=== PATIENT | female | born 2005 | race Caucasian/White ===

== ENCOUNTER 2024-11-08 12:26 | Emergency (ER) | payer BC, SELFPAY ==
[2024-11-08 12:29] VITALS: BP 120/86; PULSE 79; TEMP 36.8; O2SAT 100; BMI 23.3
--- NOTE | 2024-11-08 12:40 | ED_ITS ---
Documented by User: Karla Youssef NP 11/08/24 13:38 HPI HPI - General Adult General Chief complaint: Allergic Reaction Stated complaint: ALLERGIC REACTION Time Seen by Provider: 11/08/24 12:31 Source: patient Mode of arrival: walk-in History of Present Illness HPI narrative: Patient is a 19-year-old female who presents to the emergency department today for evaluation concerns for an allergic reaction. She endorses she [place] and there was a smell of peanuts around her which she states she is allergic to and carries an EpiPen for her. She reports she st arted having some tearing to her eyes and swelling to her face. She mentioned she did break down some hives on her left arm and left side of torso. She reports she did take 50 mg of Benadryl about 30 minutes prior to arrival in the ER. She does endorse some pain with swallowing. No wheezing or shortness of breath. She does report some nausea without vomiting. She has any diarrhea. She mention she did not use her EpiPen. Related Data Previous Rx's ?Medication ?Instructions ?Recorded prednisone 20 mg tablet 20 mg PO DAILY 3 days #3 tab s 11/08/24 Allergies Allergy/AdvReac Type Severity Reaction Status Date / Time peanut Allergy Severe Anaphylaxis Verified 11/08/24 12:37 tree nuts Allergy Severe Anaphylaxis Uncoded 11/08/24 12:37 Review of Systems ROS Status of ROS 10 or more systems reviewed and unremark able except as noted in history and below PFSH PFSH Social History Little interest or pleasure in doing things: not at all Feeling down, depressed, or hopeless: not at all Exam Narrative Exam Narrative: Constituational: Awake/ alert, no apparent distress, well hydrated HENMT: normocephalic, internal/external ears normal, no oral/angioedema, no trismus, no stridor, moist oral mucous membranes and oropharynx normal Eyes:+ Tearing to both eyes, PERRL/EOMI and conjunctivae normal Neck: ROM intact Chest: inspection of chest normal Respiratory: Normal respiratory effort, clear to auscultation bilaterally Cardio: regular rate and regular rhythm GI: soft to palpation and non-tender Back: nontender MSK: ROM intact, +NVI Skin: + x 2 to home anterior aspect of distal L forearm and mid lateral torso Neuro: no focal deficits Psych: mental status grossly normal Constitutional Vital Signs, click to edit/add: Last Vital Signs Temp 98.3 F 11/08/24 12:29 Pulse 75 11/08/24 13:51 Resp 16 11/08/24 13:51 BP 125/80 11/08/24 13:51 Pulse Ox 100 11/08/24 13:51 O2 Del Method Room Air 11/08/24 12:29 Course Vital Signs Vital signs: Vital Signs Temperature 98.3 F 11/08/24 12:29 Pulse Rate 79 11/08/24 12:29 Respiratory Rate 20 11/08/24 12:29 Blood Pressure 120/86 11/08/24 12:29 Pulse Oximetry 100 11/08/24 12:29 Oxygen Delivery Method Room Air 11/08/24 12:29 Temperature 98.3 F 11/08/24 12:29 Pulse Rate 75 11/08/24 13:51 Respiratory Rate 16 11/08/24 13:51 Blood Pressure 125/80 11/08/24 13:51 Pulse Oximetry 100 11/08/24 13:51 Oxygen Delivery Method Room Air 11/08/24 12:29 Medical Decision Making MDM Narrative Medical decision making narrative: The patient is a well-appearing 19-year-old female who presented to the emergency department today for evaluation concerns for allergic reaction 2/2 exposure to peanuts. Initial examination vital signs overall stable. No clinical evidence concerning for angioedema or anaphylaxis. There is mild clinical evidence of allergic reaction as evidenced by hives x 2 to the arm and torso and reported discomfort in the throat and symptoms of nausea. Histor ically patient did take Benadryl prior to arrival in the ER patient did receive additional supportive measures of IVP Solu-Medrol and Pepcid with IV fluids. On reevaluation patient is reporting overall improvement in condition. Vital signs have remained stable. She is tolerating oral intake with no subsequent nausea or vomiting. Clinical impression allergic reaction, mild/moderate. Discussed these findings with the patient including recommendations for supportive care. Short course of prednisone therapy. Advised and continuation of Benadryl as needed. Additional advised on follow-up with patient's primary care provider for reevaluation. Discussed signs and symptoms of any worsening condition and when to return to the emergency department for evaluation. Patient verbalized an understanding of this and is agreeable with the plan to be discharged home Medical Records Medical records reviewed: Yes I reviewed the patient's medical records Discharge Plan Discharge Chief Complaint: Allergic Reaction Clinical Impression: Allergic reaction Patient Disposition: Home, Self-Care Mode of Transportation: Private Vehicle Prescriptions / Home Meds: New prednisone 20 mg tablet 20 mg PO DAILY 3 Days Qty: 3 0RF Print Language: Citizen Of [place] Instructions: General Allergic Reaction (ED) Additional Instructions: Start taking prednisone tomorrow as prescribed. May continue to use Benadryl as needed. Stay hydrated and drink plenty of fluids. Follow-up with your primary care provider for reevaluation as discussed. Discharge Date/Time: 11/08/24 13:53 Documented by User: Prashanth Gifford MD 11/08/24 20:02 HPI HPI - General Adult General Chief complaint: Allergic Reaction Stated complaint: ALLERGIC REACTION Time Seen by Provider: 11/08/24 12:31 Related Data Previous Rx's ?Medication ?Instructions ?Recorded prednisone 20 mg tablet 20 mg PO DAILY 3 days #3 tab s 11/08/24 Allergies Allergy/AdvReac Type Severity Reaction Status Date / Time peanut Allergy Severe Anaphylaxis Verified 11/08/24 12:37 tree nuts Allergy Severe Anaphylaxis Uncoded 11/08/24 12:37 PFSH PFSH Social History Little interest or pleasure in doing things: not at all Feeling down, depressed, or hopeless: not at all Exam Constitutional Vital Signs, click to edit/add: Last Vital Signs Temp 98.3 F 11/08/24 12:29 Pulse 75 11/08/24 13:51 Resp 16 11/08/24 13:51 BP 125/80 11/08/24 13:51 Pulse Ox 100 11/08/24 13:51 O2 Del Method Room Air 11/08/24 12:29 Course Vital Signs Vital signs: Vital Signs Temperature 98.3 F 11/08/24 12:29 Pulse Rate 79 11/08/24 12:29 Respiratory Rate 20 11/08/24 12:29 Blood Pressure 120/86 11/08/24 12:29 Pulse Oximetry 100 11/08/24 12:29 Oxygen Delivery Method Room Air 11/08/24 12:29 Temperature 98.3 F 11/08/24 12:29 Pulse Rate 75 11/08/24 13:51 Respiratory Rate 16 11/08/24 13:51 Blood Pressure 125/80 11/08/24 13:51 Pulse Oximetry 100 11/08/24 13:51 Oxygen Delivery Method Room Air 11/08/24 12:29 Medical Decision Making MDM Narrative Medical decision making narrative: The patient is a well-appearing 19-year-old female who presented to the emergency department today for evaluation concerns for allergic reaction 2/2 exposure to peanuts. Initial examination vital signs overall stable. No clinical evidence concerning for angioedema or anaphylaxis. There is mild clinical evidence of allergic reaction as evidenced by hives x 2 to the arm and torso and reported discomfort in the throat and symptoms of nausea. Historically patient did take Benadryl prior to arrival in the ER patient did receive additional supportive measures of IVP Solu-Medrol and Pepcid with IV fluids. On reevaluation patient is reporting overall improvement in condition. Vital signs have remained stable. She is tolerating oral intake with no subsequent nausea or vomiting. Clinical impression allergic reaction, mild/moderate. Discussed these findings with the patient including recommendations for supportive care. Short course of prednisone therapy. Advised and continuation of Benadryl as needed. Additional advised on follow-up with patient's primary care provider for reevaluation. Discussed signs and symptoms of any worsening condition and when to return to the emergency department for evaluation. Patient verbalized an understanding of this and is agreeable with the plan to be discharged home. Pain I, Dr Gifford, have reviewed the above progress note and course of action in the ER; agree with the above. I have personally gone over history and physical, and discussed disposition and treatment plan with the PA. Discharge Plan Discharge Chief Complaint: Allergic Reaction Clinical Impression: Allergic reaction Patient Disposition: Home, Self-Care Mode of Transportation: Private Vehicle Prescriptions / Home Meds: New prednisone 20 mg tablet 20 mg PO DAILY 3 Days Qty: 3 0RF Print Language: Citizen Of [place] Instructions: General Allergic Reaction (ED) Additional Instructions: Start taking prednisone tomorrow as prescribed. May continue to use Benadryl as needed. Stay hydrated and drink plenty of fluids. Follow-up with your primary care provider for reevaluation as discussed. Discharge Date/Time: 11/08/24 13:53
[2024-11-08] MEDS: 0.9 % SODIUM CHLORIDE 1,000 ML 1000 ML IV (12:49)
[2024-11-08] MEDS: FAMOTIDINE/PF 20 MG/2 ML VIAL IV (12:49)
[2024-11-08] MEDS: METHYLPREDNISOLONE SOD SUCC PF 125 MG/2 ML VIAL IVP (12:49)
--- OUTSIDE RECORDS SUMMARY | 2024-11-08 13:05 | XMS_ITS | Referral Summary ---
Author Organization [facility] alth Address [address] [place] [address] Care Team Providers Care Supervising Chef Name Role Phone Elysia Abdalla NP Primary Care Provider [phone] Encounters Date Type Department Care Team Description 08/19/2024 11:00 AM EDT Office Visit [facility] Medicine [address] [facility] [place] [address] Elysia Abdalla NP Wheezing (Primary Dx); Acute cough; Nasal congestion from Last 3 Months Allergies Active Allergy Reactions Criticality Noted Date Comments Grass Pollen-Perennial Hull, Standard 06/18/2017 Tree Nuts High 06/18/2017 Medications EPINEPHrine (EPIPEN) 0.3 mg/0.3 mL injection syringe Inject 0.3 mL (0.3 mg total) into a muscle as directed if needed for anaphylaxis (INJECT INTO THE THIGH FOR ANAPHLAXIS REACTION and CALL 911). Call 911 after use. 1 each 10/09/19 24 Active escitalopram (LEXAPRO) 10 mg tablet TAKE 1 TABLET(10 MG) BY MOUTH 1 TIME EACH DAY 30 tablet 3 07/26/19 25 Active SUMAtriptan (IMITREX) 50 mg tabletIndicat ions:Frequent headaches Take 1 tablet (50 mg total) by mouth 1 (one) time if needed for migraine (may repeat once after 2 hours). May repeat dose once in 2 hours if no relief. Do not exceed 2 doses in 24 hours. 9 tablet 1 08/06/19 25 026 Active albuterol HFA (VENTOLIN HFA) 90 mcg/actuation inhaler 08/19/19 25 Active albuterol 2.5 mg /3 mL (0.083 %) nebulizer solutionIndic ations:Wheezi ng,Acute cough Take 3 mL (2.5 mg total) by nebulization 4 (four) times a day if needed for wheezing or shortness of breath for up to 125 doses. 75 mL 08/20/19 25 026 Active norgestimate- ethinyl estradioL (Estarylla) 0.25-0.035 mg per tablet TAKE 1 TABLET BY MOUTH IN THE MORNING 84 tablet 1 11/08/19 25 Active Estarylla 0.25-35 mg-mcg per tablet take 1 tablet by mouth every day 28 tablet 12 11/17/19 24 025 Discontinued(R eorder) norgestimate- ethinyl estradioL (Estarylla) 0.25-0.035 mg per tablet Take 1 tablet by mouth in the morning. 28 tablet 12 11/02/19 25 025 Discontinued Active Problems Problem Noted Date Diagnosed Date Environmental allergies 12/21/2021 Anxiety 12/21/2021 Immunizations Immunization Administration Dates Next Due COVID-19 Vacc,mRNA ([employer]) SARS-CoV-2 Vaccine 06/08/2021,10/16/2020,09/25/2020 DTaP 06/28/2005, 5,2004,03/09 DTaP / IPV 01/12/2010 H1N1 Nasal 03/12/2009 HPV9 12/31/2018,01/09/2018 Hep A, 2 Dose 01/06/2015,02/25/2014 Hep B, Adolescent or Pediatric 2004,2003,2004 Hib (PRP-T) 06/28/2005, 5,2004,03/09 IPV 2004,2004,2004 Influenza, Injectable, Quadr ivalent, Preservative Free 02/10/2018 Influenza, Quadrivalent 02/25/2014 Influenza, injectable, quadr ivalent, preservative free 02/10/2018 MMR 10/07/2005 MMRV (ProQuad) 02/25/2014 Meningococcal B, Omv 10/18/2021 Meningococcal MCV4P 02/25/2014 Pneumococcal Conjugate 01/06/2005,2004,2004,03/09 Tdap 02/25/2014 Typhoid 01/09/2018 Varicella 01/06/2005 meningococcal polysaccharide A,C,Y,W-135 TT Conjugate (MCV4)(MenQuadfi) 11/06/2020 Social History Tobacco Use Types Packs/Day Years Used Date Smoking Tobacco: Never Smokeless Tobacco: Never Alcohol Use Standard Drinks/Week Comments No 0 (1 standard drink = 0.6 oz pur e alcohol) PHQ-2 Answer Date Recorded Patient Health Questionnaire-2 Score 2 12/21/2021 Comments Unknown Sex and Gender Information Value Date Recorded Sex Assigned at Female 08/05/2024 9:31 PM EST Legal Sex Female 11:49 PM EDT Gender Identity Female 08/05/2024 9:31 PM EST Sexual Orientation Not on file Last Filed Vital Signs Vital Sign Reading Time Taken Comments Blood Pressure 100/70 08/19/2024 11:03 AM EDT Pulse 94 08/19/2024 11:03 AM EDT Temperature 36.9 C (98.4 F) 11/04/2022 12:55 PM EDT Respiratory Rate - - Oxygen Saturation 99% 08/19/2024 11:03 AM EDT Inhaled Oxygen Concentration - - Weight 67.6 kg (149 lb) 08/19/2024 11:03 AM EDT Height 166.4 cm (5' 5.5 ) 11/04/2022 12:55 PM ED T Body Mass Index 24.42 11/04/2022 12:55 PM EDT Plan of Treatment Not on file Procedures Procedure Name Priority Date/Time Associated Diagnosis Comments POC RAPID COVID19 PCR TEST Routine 08/19/2024 11:32 AM EDT Acute cough Nasal congestion POC RESPIRATORY SYNCYTIAL VIRUS (RSV) BY PCR Routine 08/19/2024 11:31 AM EDT Wheezing Acute cough POC INFLUENZA A&B BY PCR Routine 08/19/2024 11:31 AM EDT Acute cough Nasal congestion from Last 3 Months Results * POC Rapid Covid19 PCR Test (08/19/2024 11:32 AM EDT) POC Covid 19 PCR Negative Negative Swab Specimen from nasopharyngeal structure / Unknown 08/19/2024 11:32 AM EDT Elysia Chuckchenko BRIM POUNCING MACHINE OPERATOR POINT OF CARE TEST ORDERAB LES Final Result * Respiratory Syncytial Virus by PCR (08/19/2024 11:31 AM EDT) RSV Negative Negative Swab Specimen from nasopharyngeal structure / Unknown 08/19/2024 11:31 AM EDT Elysia Chuckchenko BRIM POUNCING MACHINE OPERATOR POINT OF CARE TEST ORDERAB LES Final Result * Influenza A&B by PCR (08/19/2024 11:31 AM EDT) Influenza A Negative Negative Influenza B Negative Negative Swab Specimen from nasopharyngeal structure / Unknown 08/19/2024 11:31 AM EDT Elysia Chuckchenjhonny BRIM POUNCING MACHINE OPERATOR POINT OF CARE TEST ORDERAB LES Final Result from Last 3 Months Insurance #[employer] [place] [address] [place], [place] [id number] Care Teams Supervising Chef Relationship Specialty Start Date End Date Elysia Abdalla NP [address] [place] [phone] PCP - General Family Medicine 05/19/22
[2024-11-08 13:51] VITALS: BP 125/80; PULSE 75; O2SAT 100
--- NOTE | 2024-11-08 13:52 | PC.NURSE ---
facial swelling resolved and no resp distress at time of d/c.
== END 2024-11-08 13:53 | disposition home or self-care (01) ==
PROVIDERS: Emergency Provider Emergency Medicine
DX: T78.40XA Allergy, unspecified, initial encounter (principal); X58.XXXA Exposure to other specified factors, initial encounter; Z91.010 Allergy to peanuts
CPT/HCPCS: 96374; 96375; 99284; J2919; J3490